=== PATIENT | female | born 2000 | race Caucasian/White ===

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

== ENCOUNTER 2020-10-14 09:37 | Emergency (ER) | payer MEDICAID, OTHER ==
[~2020-10-14] VITALS: Ht 149.9 cm; Wt 58.0 kg
[2020-10-14 09:40] VITALS: BP 119/67
--- NOTE | 2020-10-14 09:59 | PHYS DOC ---
Past History Past Medical History: Diabetes, Other Past Surgical History: Tonsillectomy Additional Past Surgical Histo: wisdom teeth Smoking: Non-smoker Alcohol Use: None Drug Use: None Adult General Chief Complaint Chief Complaint: Palpitations HPI HPI Patient is a 20-year-old female presenting for chest pain. This is an acute on chronic problem. Reports this has worsened and first noticed yesterday morning when waking up. Nothing known makes better or worse. Patient reports right- sided deep pressure-like pain under her right breast that radiates to bilateral shoulders. Timing of symptoms waxes and wanes and has been ongoing for past x3 months with x1 month worsening exertional dyspnea. Patient denies any fever, COVID-19 contact, cough, abdominal pain, changes in bladder or bowel function. Patient states each episode is transient in nature and resolves without intervention after approximately less than 30 minutes. Patient concerned as she has prior cardiac work-up at 11 years of age and was found to have mitral valve prolapse. She does not smoke, does not use any other illicit drugs but admits strong cardiac history in her family. Admits no known congenital cardiac abnormalities but discloses she has had numerous family relatives with heart attacks less than 50 years old, she denies any drug use occurred during set heart attacks, she denies any known history of autoimmune or other abnormalities inside individuals. Patient has been concerned about increased frequency of episodes leading her to schedule appointment to establish with local primary care physician, she has an appointment in outpatient setting this upcoming Thursday Review of Systems Review of Systems Fourteen body systems of review of systems have been reviewed. See HPI for pertinent positives and negative responses, other cotter all other systems are negative, non-pertinent or non-contributory Allergies Allergies Allergies Coded Allergies Type Severity Reaction Last Updated Verified amoxicillin Allergy Intermediate Rash 06/18/16 Yes cefuroxime Allergy Intermediate Hives 06/18/16 Yes clavulanic acid Allergy Intermediate Rash 06/18/16 Yes erythromycin base Allergy Intermediate Hives 06/18/16 Yes Physical Exam Physical Exam Constitutional: Well developed, well nourished, no acute distress, non-toxic appearance. HENT: Normocephalic, atraumatic, bilateral external ears normal, oropharynx moist, no oral exudates, nose normal. Eyes: PERRLA, EOMI, conjunctiva normal, no discharge. Neck: Normal range of motion, no tenderness, supple, no stridor. Cardiovascular: Heart rate regular, sinus rhythm, no murmurs rubs or gallops Lungs & Thorax: Bilateral breath sounds clear to auscultation Abdomen: Bowel sounds normal, soft, no tenderness, no masses, no pulsatile masses. Nonsurgical abdomen, no peritoneal signs Skin: Warm, dry, no erythema, no rash. Back: No tenderness, no CVA tenderness. Extremities: No tenderness, no cyanosis, no clubbing, ROM intact, no edema. Neurologic: Alert and oriented X 3, grossly normal motor & sensory function, no focal deficits noted. Psychologic: Affect normal, judgement normal, anxious mood Current Patient Data Vital Signs Vital Signs Date Time Temp Pulse Resp B/P (MAP) Pulse Ox O2 Delivery O2 Flow Rate FiO2 10/14/20 09:40 98.2 78 18 119/67 (84) 99 Room Air Lab Results Laboratory Tests Test 10/14/20 09:48 White Blood Count 6.5 x10^3/uL (4.0-11.0) Red Blood Count 5.06 x10^6/uL (3.50-5.40) Hemoglobin 15.0 g/dL (12.0-15.5) Hematocrit 44.5 % (36.0-47.0) Mean Corpuscular Volume 88 fL (79-100) Mean Corpuscular Hemoglobin 30 pg (25-35) Mean Corpuscular Hemoglobin Concent 34 g/dL (31-37) Red Cell Distribution Width 12.9 % (11.5-14.5) Platelet Count 247 x10^3/uL (140-400) Sodium Level 137 mmol/L (136-145) Potassium Level 3.9 mmol/L (3.5-5.1) Chloride Level 103 mmol/L (98-107) Carbon Dioxide Level 27 mmol/L (21-32) Anion Gap 7 (6-14) Blood Urea Nitrogen 7 mg/dL (7-20) Creatinine 0.9 mg/dL (0.6-1.0) Estimated GFR (Cockcroft-Gault) 79.0 BUN/Creatinine Ratio 8 (6-20) Glucose Level 90 mg/dL (70-99) Calcium Level 9.4 mg/dL (8.5-10.1) Total Bilirubin 0.3 mg/dL (0.2-1.0) Aspartate Amino Transf (AST/SGOT) 19 U/L (15-37) Alanine Aminotransferase (ALT/SGPT) 20 U/L (14-59) Alkaline Phosphatase 49 U/L (46-116) Troponin I Quantitative < 0.017 ng/mL (0-0.055) Total Protein 7.1 g/dL (6.4-8.2) Albumin 3.6 g/dL (3.4-5.0) Albumin/Globulin Ratio 1.0 (1.0-1.7) Serum Test, Qualitative Negative (NEG) EKG EKG EKG ordered and interpreted by myself at 1000 hours as sinus rhythm at 85 bpm, unremarkable intervals, no axis deviation, no acute ischemic findings, no STEMI Radiology/Procedures Radiology/Procedures PROCEDURE: CHEST AP ONLY AP chest. HISTORY: Chest pain AP view was taken of the chest. Lungs are clear. Heart is normal in size. There is no pleural effusion. IMPRESSION: 1. No acute chest disease. Electronically signed by: Bal Clement MD (10/14/2020 11:36 AM) [facility] Heart Score HEART Score for Chest Pain: HEART Score for Chest Pain Response (Comments) Value History Moderately Suspicious 1 ECG Normal 0 Age < 45 0 Risk Factors 1 or 2 Risk Factors 1 Troponin < Normal Limit 0 Total 2 Risk Factors: Risk Factors: DM, Current or recent (<one month) smoker, HTN, HLP, family history of CAD, obesity. Risk Scores: Risk Factors: DM, Current or recent (<one month) smoker, HTN, HLP, family history of CAD, obesity. Course & Med Decision Making Course & Med Decision Making Pertinent Labs and Imaging studies reviewed. (See chart for details) Discussed most likely diagnosis of atypical chest pain in a high risk individual. With that said, I did disclose there was no indication for further diagnostic work-up and/or need for medical admission today. Patient has appointment this upcoming Thursday to establish care and discuss concerns in outpatient setting. I feel she would benefit from further provocative cardiac testing such as outpatient echocardiogram and/or stress test etc. Strict return precautions were discussed with good understanding by patient, all questions and concerns addressed prior to ER departure in stable condition Dragon Disclaimer Dragon Disclaimer This electronic medical record was generated, in whole or in part, using a voice recognition dictation system. PERC Rule for PE PERC Rule for PE Response (Comments) Value Age > 50: No 0 HR > 100: No 0 Sa02 on room air <95%: No 0 Unilateral leg swelling: No 0 Hemoptysis: No 0 Recent surgery or trauma: No 0 Prior PE or DVT: No 0 Hormone use: No 0 Total 0 Departure Departure: Impression: Primary Impression: Atypical chest pain Disposition: 01 DC HOME SELF CARE/HOMELESS Condition: STABLE Referrals: SHADY DIAMOND (PCP) Patient Instructions: Chest Pain (Nonspecific) Additional Instructions: As discussed, please ensure you keep your follow-up to establish care in outpatient setting this upcoming Thursday As I discussed, there were no obvious emergent and/or surgical findings present today. There was no indication for further diagnostic work-up in ER setting. You would benefit from discussing need for continued outpatient provocative cardiac work-up such as stress test and/or echocardiogram with your primary care physician If any concerning signs or symptoms present prior to outpatient follow-up please do not hesitate to come back for repeat examination. It was a pleasure to take care of you and I wish you a speedy recovery HANNAH HENDRIX DO Oct 14, 2020 09:59
[2020-10-14 10:21] LABS: HEMATOCRIT 44.5 % (36.0-47.0); RED BLOOD COUNT 5.06 x10^6/uL (3.50-5.40); RED CELL DISTRIBUTION WIDTH 12.9 % (11.5-14.5); WHITE BLOOD COUNT 6.5 x10^3/uL (4.0-11.0)
--- NOTE | 2020-10-14 10:24 | EKG ---
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
[2020-10-14 10:28] LABS: CALCIUM 9.4 mg/dL (8.5-10.1); CREATININE 0.9 mg/dL (0.6-1.0); POTASSIUM 3.9 mmol/L (3.5-5.1)
[2020-10-14] MEDS ORDERED: ASPIRIN CHEWABLE 81 MG TABLET. PO ONE (10:30)
[2020-10-14 10:34] LABS: ALBUMIN 3.6 g/dL (3.4-5.0); TOTAL BILIRUBIN 0.3 mg/dL (0.2-1.0); TOTAL PROTEIN 7.1 g/dL (6.4-8.2)
[2020-10-14 10:37] LABS: PREG TEST PT QUAL NEGATIVE (NEG)
--- NOTE | 2020-10-14 11:39 | RAD ---
AP chest. HISTORY: Chest pain AP view was taken of the chest. Lungs are clear. Heart is normal in size. There is no pleural effusion. IMPRESSION: 1. No acute chest disease. Electronically signed by: Bal Clement MD (10/14/2020 11:36 AM) [facility]
== END 2020-10-14 11:55 | disposition home or self-care (01) ==
LOC: ER 09:37
DX: R07.89 Other chest pain (principal); R06.00 Dyspnea, unspecified; E11.9 Type 2 diabetes mellitus without complications; Z90.89 Acquired absence of other organs; Z98.890 Other specified postprocedural states; Z88.1 Allergy status to other antibiotic agents; Z88.8 Allergy status to other drugs, medicaments and biological substances
CPT/HCPCS: 36415; 71045; 80053; 84484; 84703; 85027; 93005; 99285

== ENCOUNTER 2021-01-30 08:35 | Emergency (ER) | payer MEDICAID ==
[~2021-01-30] VITALS: Ht 149.9 cm; Wt 58.0 kg
[2021-01-30] MEDS ORDERED: IV NORMAL SALINE 1,000ML 1,000 ML IV ONE (09:15)
--- NOTE | 2021-01-30 09:15 | PHYS DOC ---
Past History Past Medical History: Diabetes, Other Additional Past Medical Histor: mitral valve prolapse Past Surgical History: Tonsillectomy Additional Past Surgical Histo: wisdom teeth Smoking: Non-smoker Alcohol Use: None Drug Use: None General Adult EDM: Chief Complaint: SYNCOPE HPI: HPI: Patient is a 20-year-old female coming in for multiple syncopal episodes. Patient states she was having some stomach upset while sitting her recliner when she got up she felt lightheaded. Was able to stand up from it started feel better when she walked into the kitchen to get some juice she syncopized. Patient says she syncopized 2-3 times for a short amount of time. States she woke up one of the times with some bleeding from her nose that is stopped now. Patient states she had a similar episodes about 6 or 7 years ago which were attributed to her blood glucose. Patient states she has a history of mitral valve prolapse and has been followed with cardiology. States she typically has chest pains but none this morning. Denies any recent illness, vomiting, change in appetite, diarrhea, changes in urination. Denies any changes in menstrual cycle. Review of Systems: Review of Systems: All other systems within normal limits except for as noted in the HPI Current Medications: Current Meds: Current Medications Medications (Trade) Dose Ordered Sig/Charbel Start Time Stop Time Status Last Admin Dose Admin Sodium Chloride 1,000 ml @ 1,000 mls/hr 1X ONCE 01/30/21 09:15 01/30/21 10:14 Allergies: Allergies: Allergies Coded Allergies Type Severity Reaction Last Updated Verified amoxicillin Allergy Intermediate Rash 06/18/16 Yes cefuroxime Allergy Intermediate Hives 06/18/16 Yes clavulanic acid Allergy Intermediate Rash 06/18/16 Yes erythromycin base Allergy Intermediate Hives 06/18/16 Yes Physical Exam: PE: Constitutional: Well developed, well nourished, no acute distress, non-toxic appearance. [] HENT: Normocephalic, atraumatic, bilateral external ears normal, nose normal. [] Eyes: PERRLA, conjunctiva normal, no discharge. [] Neck: No rigidity, supple, no stridor. [] Cardiovascular: Regular rate and rhythm, brisk cap refill. Systolic murmur, no gallop or rubs. [] Lungs & Thorax: Non labored symmetric respirations, no tachypnea or respiratory distress [] Abdomen: Soft, nondistended. Skin: Warm, dry, no erythema, no rash. [] Back: Unremarkable Extremities: No deformities, range of motion grossly intact, no lower extremity edema [] Neurologic: Alert and oriented X 3, no focal deficits noted. [] Psychologic: Affect normal, judgement normal, mood normal. [] Current Patient Data: Labs: Laboratory Tests Test 01/30/21 08:55 Glucose (Fingerstick) 83 mg/dL (70-99) EKG: EKG: Sinus rhythm, heart rate 70 bpm, no ST elevation or depression, normal axis, T waves unremarkable, no ectopy [] Radiology/Procedures: Radiology/Procedures: CT HEAD/BRAIN WO History: Reason: Multiple syncopal episiodes, fall / Spl. Instructions: / History: Comparison: None. Technique: Noncontrast CT imaging was performed of the head. Exposure: One or more of the following individualized dose reduction techniques were utilized for this examination: 1. Automated exposure control 2. Adjustment of the mA and/or kV according to patient size 3. Use of iterative reconstruction technique. Findings: No intracranial hemorrhage. No mass effect. No hydrocephalus. Extra-axial s paces are unremarkable. Imaged orbits are unremarkable. Imaged paranasal sinuses and mastoid air cells are clear. No acute calvarial fracture. Impression: 1. No acute intracranial abnormality. [] Heart Score: C/O Chest Pain: N/A Risk Factors: Risk Factors: DM, Current or recent (<one month) smoker, HTN, HLP, family histo ry of CAD, obesity. Risk Scores: Score 0 - 3: 2.5% MACE over next 6 weeks - Discharge Home Score 4 - 6: 20.3% MACE over next 6 weeks - Admit for Clinical Observation Score 7 - 10: 72.7% MACE over next 6 weeks - Early Invasive Strategies Course & Med Decision Making: Course & Med Decision Making Pertinent Labs and Imaging studies reviewed. (See chart for details) [] Dragon Disclaimer: Reji Disclaimer: This electronic medical record was generated, in whole or in part, using a voice recognition dictation system. Departure Departure: Impression: Primary Impression: Syncope Disposition: 01 DC HOME SELF CARE/HOMELESS Condition: STABLE Referrals: SHADY DIAMOND (PCP) Patient Instructions: Syncope JG ARNOLD MD Jan 30, 2021 09:15
--- NOTE | 2021-01-30 09:26 | EKG ---
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
[2021-01-30 09:42] VITALS: BP 104/59
--- NOTE | 2021-01-30 09:43 | RAD ---
CT HEAD/BRAIN WO History: Reason: Multiple syncopal episiodes, fall / Spl. Instructions: / History: Comparison: None. Technique: Noncontrast CT imaging was performed of the head. Exposure: One or more of the following individualized dose reduction techniques were utilized for thi s examination: 1. Automated exposure control 2. Adjustment of the mA and/or kV according to patient size 3. Use of iterative reconstruction technique. Findings: No intracranial hemorrhage. No mass effect. No hydrocephalus. Extra-axial spaces are unremarkable. Imaged orbits are unremarkable. Imaged paranasal sinuses and mastoid air cells are clear. No acute ca lvarial fracture. Impression: 1. No acute intracranial abnormality. Electronically signed by: Jordan Barrientos DO (01/30/2021 9:41 AM) [id number]
[2021-01-30 09:44] LABS: BASO % 1 % (0-3); EOS # 0.1 x10^3/uL (0.0-0.7); EOS % 1 % (0-3); HEMATOCRIT 43.1 % (36.0-47.0); HEMOGLOBIN 14.4 g/dL (12.0-15.5); LYMPH # 1.8 x10^3/uL (1.0-4.8); LYMPH % 25 % (24-48); MEAN CORPUSCULAR HEMOGLOBIN 29 pg (25-35); MEAN CORPUSCULAR HGB CONC 33 g/dL (31-37); MEAN CORPUSCULAR VOLUME 88 fL (79-100); MONO # 0.4 x10^3/uL (0.0-1.1); MONO % 6 % (0-9); NEUT # 4.9 x10^3uL (1.8-7.7); NEUT % 68 % (31-73); PLATELET COUNT 218 x10^3/uL (140-400); RED BLOOD COUNT 4.89 x10^6/uL (3.50-5.40); RED CELL DISTRIBUTION WIDTH 12.8 % (11.5-14.5); WHITE BLOOD COUNT 7.2 x10^3/uL (4.0-11.0)
[2021-01-30 10:02] LABS: CALCIUM 8.9 mg/dL (8.5-10.1); CREATININE 0.8 mg/dL (0.6-1.0); GFR 90.5; POTASSIUM 4.3 mmol/L (3.5-5.1)
[2021-01-30 10:14] LABS: ALBUMIN 3.2 g/dL (3.4-5.0); ALBUMIN/GLOBULIN RATIO 1.1 (1.0-1.7); MAGNESIUM 1.9 mg/dL (1.8-2.4); PHOSPHORUS 3.4 mg/dL (2.6-4.7); TOTAL BILIRUBIN 0.3 mg/dL (0.2-1.0); TOTAL PROTEIN 6.1 g/dL (6.4-8.2)
[2021-01-30 11:00] LABS: BILIRUBIN,URINE NEG (NEG); CLARITY,URINE CLEAR; COLOR,URINE YELLOW; GLUCOSE,URINE NEG (NEG); NITRITE,URINE NEG (NEG); UROBILINOGEN,URINE 0.2 mg/dL (0.2 mg/dL)
[2021-01-30 11:01] LABS: BACTERIA,URINE FEW /HPF (0-FEW); RBC,URINE OCC /HPF (0-2); SQUAMOUS EPITHELIAL CELL,UR MANY /LPF
[2021-01-30 11:02] LABS: U PREG PATIENT NEGATIVE (NEG)
== END 2021-01-30 11:31 | disposition home or self-care (01) ==
LOC: ER 08:35
DX: R55 Syncope and collapse (principal); K30 Functional dyspepsia; R42 Dizziness and giddiness; E11.9 Type 2 diabetes mellitus without complications; Z88.1 Allergy status to other antibiotic agents; Z88.8 Allergy status to other drugs, medicaments and biological substances
CPT/HCPCS: 36415; 70450; 80053; 81001; 81025; 82947; 83735; 83880; 84100; 84484; 85025; 85379; 87086; 93005; 96360; 99285; J7030